=== PATIENT | female | born 1940 | race Caucasian/White ===

== ENCOUNTER 2017-01-19 11:01 | Day surgery (SDC) | payer OTHER ==
[2017-01-16 19:56] LABS: HEMATOCRIT 40.7 % (36.0-48.0); HEMOGLOBIN 13.4 g/dL (12.0-16.0)
[2017-01-16 20:11] LABS: BUN (BLOOD UREA NITROGEN) 18 MG/DL (6-23); CHLORIDE, SERUM 105 MMOL/L (96-112); CO2 (CARBON DIOXIDE) 27 MMOL/L (24-34); CREATININE 1.13 MG/DL (0.55-1.02); GFR AFRICAN AMERICAN 55 ML/MIN (>=60); GFR NON AFRICAN AMERICAN 48 ML/MIN (>=60); GLUCOSE, SERUM 113 MG/DL (60-99); POTASSIUM, SERUM 4.3 MMOL/L (3.5-5.3); SODIUM, SERUM 139 MMOL/L (135-148)
--- NOTE | ~2017-01-19 | OP ---
Record Of Operation [facility] [address] [place]. [address] NAME: PONCE MORENO : 42 STATUS : [facility]#: [id number] AGE: 76 ADM/REG DATE : 01/19/17 MR#: [id number] REPORT SERV DATE: 01/19/17 DICTATED BY: MAX URIARTE III DATE: 01/19/17 REPORT STATUS : Draft TRANSCRIBED BY: MODL DATE: 01/19/17 DATE OF PROCEDURE: 01/19/2017 PREOPERATIVE DIAGNOSES: 1. Microhematuria. 2. Urinary retention. POSTOPERATIVE DIAGNOSIS: Grade 2 cystocele. PROCEDURE: Cystoscopy and urethral dilation. SURGEON: Max Uriarte M.D. ANESTHESIA: General. SPECIMENS: None. DRAINS: None. BLOOD LOSS: Zero. FLUIDS: 400 mL. INDICATION: Ms. Moreno is a 76-year-old white female who is undergoing evaluation of microhematuria. CT scan showed that the kidneys appeared normal bilaterally. There are some small nonobstructing stones in the left kidney. She was found to be retaining urine with a postvoid residual of greater than 200 mL. Consent is obtained for cystoscopy and urethral dilation. DESCRIPTION OF PROCEDURE: After consent was obtained and the patient was identified, she was taken to the OR and put to sleep. She was positioned in the low lithotomy position and prepped and draped in the usual fashion. The 20-Cambodian cystoscope was made ready and advanced to the bladder using the obturator. The bladder was then inspected with 30- and 70 degree viewing lenses. The bladder wall was trabeculated consistent with urinary retention. There were no tumors, stones, or foreign bodies noted. Ureteral orifices appeared normal. The bladder was left full and the scope was removed. The Alen sounds were then used to sequentially dilate the urethra to 32-Cambodian. The bladder was then drained. A vaginal exam was then performed, which showed a grade 2 cystocele. The patient was awakened and taken to recovery in stable condition. PH/MODL Max Uriarte III, M.D. Record Of Operation [facility] [address] [place]. [address] NAME: PONCE MORENO : 42 STATUS : [facility] PAT#: [id number] AGE: 76 ADM/REG DATE : 01/19/17 MR#: [id number] REPORT SERV DATE: 01/19/17 DICTATED BY: MAX URIARTE III DATE: 01/19/17 REPORT STATUS : Draft TRANSCRIBED BY: MODL DATE: 01/19/17 / [id number] CC: Merissa Carrion III, M.D.
[~2017-01-19 11:01] MED LIST: ADVAIR230P INH; ADVAIR250 INH; AMIT50 PO; ANTIBIOTIC PO; AT25 PO; B12 IM; B121000P IM; BEN25 PO; CELEXA20 PO; CORTISONE PO; DHE1 OR; DHEA PO; DHEA25 MG OR; DUONEB INH; ESTRACE1 MG PO; ESTRADERM0.1 MG TD; FLONASE NAS; FLORINEF0.1 MG PO; FORTEO SC; IRON PO; KDUR10 PO; KLOR-CON 1010 MEQ PO; LEVOTHYROXIN100 MCG PO; LEVSINTAB PO; MAG6464 MG PO; METHOCARBAMOL PO; MIRAPEX250 PO; MIRAPEX5 PO; NASONEX NAS; NEXIUM40 PO; PRILOSEC40 MG PO; PROVENT20 INH; PROZ10 PO; PROZAC PO; SINGULAIR1 PO; SYN1 PO; SYN88 PO; ULTRACET PO; V5 PO; VIT B-SIX 50 MG50 MG IM; VITAMIN D2000 UNIT PO; XOPENEX HFA INH; [UNRECOGNIZED DRUG - OTHER]; [UNRECOGNIZED DRUG - OTHER] OR; [UNRECOGNIZED DRUG - OTHER] PO
== END 2017-01-19 16:26 | disposition home or self-care (01) ==
LOC: SDC 11:01
PROVIDERS: Urology
PROC: 0T7D8ZZ Dilation of Urethra, Via Natural or Artificial Opening Endoscopic (ICD-10-PCS; principal; 2017-01-19 12:45)
DX: N81.10 Cystocele, unspecified (principal); E27.1 Primary adrenocortical insufficiency; E03.9 Hypothyroidism, unspecified; J45.909 Unspecified asthma, uncomplicated; G89.29 Other chronic pain; M79.7 Fibromyalgia; K58.9 Irritable bowel syndrome, unspecified; Z88.8 Allergy status to other drugs, medicaments and biological substances; Z91.048 Other nonmedicinal substance allergy status; Z79.899 Other long term (current) drug therapy
CPT/HCPCS: 80048; 82962; 85014; 85018; 93005; J2250; J2405; J3010